=== PATIENT | female | born 1945 | race Caucasian/White ===

== ENCOUNTER 2018-07-13 14:29 | Emergency (ER) | payer MEDICARE ==
[~2018-07-13] VITALS: Ht 160 cm; Wt 67.3 kg
[2018-07-13 14:41] VITALS: BP 159/92
== END 2018-07-13 16:23 | disposition home or self-care (01) ==
LOC: ED 15:20
DX: L03.811 Cellulitis of head [any part, except face] (principal)
CPT/HCPCS: 99283